=== PATIENT | female | born 1980 ===

== ENCOUNTER 2020-04-01 06:03 | Day surgery (SDC) | payer OTHER | END 2020-04-01 18:40 | disposition home or self-care (01) | LOC: CIR.AMB 06:03 | PROVIDERS: ATTEND Surgery | DX: K60.1 Chronic anal fissure (principal); K62.4 Stenosis of anus and rectum; Z20.822 Contact with and (suspected) exposure to COVID-19 ==

== ENCOUNTER 2020-04-02 02:57 | Emergency (ER) | payer OTHER ==
[~2020-04-02] VITALS: Ht 167.6 cm; Wt 72.6 kg
== END 2020-04-02 07:33 | disposition home or self-care (01) ==
LOC: ER 02:57
DX: K62.89 Other specified diseases of anus and rectum (principal)